=== PATIENT | female | born 1970 | race African-American/Black ===

== ENCOUNTER → 2017-02-05 | Outpatient (CLI) | payer OTHER ==
[2016-03-19 11:00] VITALS: BP 105/66
[~2017-02-05] MED LIST: ALPR0.254 PO; ANAS1TAB PO; CETI10TA16 PO; ESTR1TAB15 PO; FLUT9.9S NS; GABA-585 PO; GABA-586 PO; HYDR-2666 PO; HYDR-2762 PO; HYDR200T5 PO; METR70GE14 VG; MONT10TA6 PO; NIFE30TA9 PO; TIZA4TAB PO; VENL150C6 PO; VENL75TA2 PO
--- NOTE | 2017-02-05 09:45 | RAD ---
Left hip radiographs History: Chronic low back and left hip pain for over one year. Fall 2 weeks ago and pain has increased. Comparison: None. Findings: AP and frog-leg views of the left hip. No acute fracture or dislocation is identified. No significant degeneration is seen. Impression: Unremarkable left hip radiographs.
== END | disposition home or self-care (01) ==
LOC: RAD 09:05
PROVIDERS: ATTEND Neuromusculoskeletal Medicine, Sports Medicine
DX: M25.552 Pain in left hip (principal); G89.29 Other chronic pain; M54.12 Radiculopathy, cervical region
CPT/HCPCS: 73502